=== PATIENT | female | born 1960 | race Caucasian/White ===

== ENCOUNTER 2017-10-08 06:27 | Emergency (ER) | payer OTHER ==
[2017-10-08 06:43] VITALS: RESP 20
--- NOTE | 2017-10-08 07:51 | C.PDOC ---
History Of Present Illness 57 y/o female presents to the ER for evaluation of dizziness which began yesterday. Patient reports that it " feels like vertigo" and she feels like the " room is spinning."Patient had an elevated BP,170/80, in the morning with her baseline being 130/70.She reports that she had similar episodes in the past. She was previously diagnosed with meningioma in 2012 but she was non compliant with her follow-up. She notes that the dizziness is associated with nausea.She denies having headache. Time Seen by Provider: 10/08/17 07:19 Chief Complaint (Nursing): Dizziness/Lightheaded History Per: Patient History/Exam Limitations: no limitations Onset/Duration Of Symptoms: Days Current Symptoms Are (Timing): Still Present Severity: Moderate Past Medical History Reviewed: Historical Data, Nursing Documentation, Vital Signs Vital Signs: Last Vital Signs Temp 98.2 F 10/08/17 14:09 Pulse 57 L 10/08/17 14:09 Resp 20 10/08/17 14:09 BP 103/52 L 10/08/17 14:09 Pulse Ox 99 10/08/17 14:09 - Medical History PMH: HTN Surgical History: No Surg Hx Family History: States: No Known Family Hx - Social History Hx Tobacco Use: No Hx Alcohol Use: No Hx Substance Use: No - Immunization History Hx Tetanus Toxoid Vaccination: No Hx Influenza Vaccination: No Hx Pneumococcal Vaccination: No Review Of Systems Except As Marked, All Systems Reviewed And Found Negative. Gastrointestinal: Positive for: Nausea Neurological: Positive for: Dizziness. Negative for: Headache Physical Exam - Physical Exam Appears: Non-toxic, No Acute Distress Skin: Normal Color, Warm Head: Atraumatic, Normacephalic Eye(s): bilateral: Normal Inspection Neurological/Psych: Other (inducible vertigo with positon change, otherwise no neurovascular deficits) ED Course And Treatment - Laboratory Results Result Diagrams: 10/08/17 08:02 10/08/17 08:02 ECG: Interpreted By Me ECG Rhythm: Sinus Rhythm ECG Interpretation: No Acute Changes Interpretation Of ECG: TWI UNCH FROM PRIOR O2 Sat by Pulse Oximetry: 100 (RA) Pulse Ox Interpretation: Normal - CT Scan/US Head CT Other Rad Studies (CT/US): Read By Radiologist CT/US Interpretation: PROCEDURE: CT HEAD WITHOUT CONTRAST. HISTORY: Dizziness , history of meningioma please compared to 2013. COMPARISON: 04/11/2013. TECHNIQUE: Axial computed tomography images were obtained through the head/ brain without intravenous contrast. Radiation dose: Total exam DLP = 847.23 mGy-cm. This CT exam was performed using one or more of the following dose reduction techniques: Automated exposure control, adjustment of the mA and/or kV according to patient size, and/or use of iterative reconstruction technique. FINDINGS: HEMORRHAGE: No intracranial hemorrhage. BRAIN: Rodriguez-white matter differentiation is preserved. There is a 13 x 12 mm peripherally calcified right frontal parafalcine meningioma not significantly changed since the prior examination There is no mass effect or abnormal extra-axial fluid collection. There are coarse atherosclerotic calcifications in the cavernous carotid arteries. VENTRICLES: The ventricles are normal in size, shape and configuration. There is prominence of bifrontal extra-axial CSF spaces. CALVARIUM: Unremarkable. PARANASAL SINUSES: Unremarkable as visualized. No significant inflammatory changes. MASTOID AIR CELLS: Unremarkable as visualized. No inflammatory changes. OTHER FINDINGS: None. IMPRESSION: No acute intra and cranial abnormality. Little interval change known 13 x 12 mm peripherally calcified right frontal parafalcine meningioma. Progress - Re-Evaluation Re-evaluation Note: 10/08/17 08:59 NAUSEA RESOLVED, STATES IS READY TO TAKE PO MEDS. CT REPORT PENDING 10/08/17 13:51 AMBUL WO DIFF, PS FEELS BETTER. CO R NECK/UPPER BACK PAIN WORSE W MOVEMENT. NO SWELL, NONTEND AROM WO DIFF. REPRODUC PAIN W R LAT ROTATION. - Data Reviewed Data Reviewed: Lab, Diagnostic imaging, EKG, Old records Medical Decision Making Medical Decision Making: Plan: --Antivert PO --Zofran IV --Labs --ECG --CT-Head Disposition Counseled Patient/Family Regarding: Studies Performed, Diagnosis, Need For Followup, Rx Given - Disposition Referrals: YOUR,PMD [Other] Disposition: HOME/ ROUTINE Disposition Time: 13:54 Condition: IMPROVED Prescriptions: Meclizine [Antivert] 50 mg PO TID PRN #21 tab PRN Reason: Dizziness Metoclopramide [Reglan] 1 tab PO TID PRN #25 tab PRN Reason: Nausea/Vomiting Instructions: Vertigo (a Type of Dizziness), Torticollis, Adult Forms: [employer] (French) - Clinical Impression Clinical Impression: Vertigo, Torticollis, acute - Scribe Statement The provider has reviewed the documentation as recorded by the Scribe Chrissy Richey Provider Attestation: All medical record entries made by the Scribe were at my direction and personally dictated by me. I have reviewed the chart and agree that the record accurately reflects my personal performance of the history, physical exam, medical decision making, and the department course for this patient. I have also personally directed, reviewed, and agree with the discharge instructions and disposition.
[2017-10-08 08:17] LABS: BASO % 0.3 % (0.0-2.0); EOS % 0.6 % (0.0-4.0); HEMOGLOBIN 13.9 g/dL (11.0-16.0); LYMPH # 0.9 K/uL (1.0-4.3); LYMPH % 12.5 % (20.0-40.0); MEAN CORPUSCULAR HEMOGLOBIN 30.3 pg (27.0-31.0); MEAN CORPUSCULAR HGB CONC 33.7 g/dL (33.0-37.0); MEAN PLATELET VOLUME 8.4 fL (7.2-11.7); MONO # 0.4 K/uL (0.0-0.8); MONO % 5.4 % (0.0-10.0); NEUT # 5.8 K/uL (1.8-7.0); NEUT % 81.2 % (50.0-75.0); RBC 4.6 Mil/uL (3.80-5.20); WHITE BLOOD COUNT 7.1 K/uL (4.8-10.8)
[2017-10-08 08:29] LABS: BLOOD UREA NITROGEN 12 mg/dL (7-17); CALCIUM 8.9 mg/dl (8.6-10.4); GFR AFRICAN-AMERICAN > 60; GFR NON-AFRICAN AMERICAN > 60
--- NOTE | 2017-10-08 09:05 | CT ---
PROCEDURE: CT HEAD WITHOUT CONTRAST. HISTORY: Dizziness, history of meningioma please compared to 2013 COMPARISON: 04/11/2013. TECHNIQUE: Axial computed tomography images were obtained through the head/brain without intravenous contrast. Radiation dose: Total exam DLP = 847.23 mGy-cm. This CT exam was performed using one or more of the following dose reduction techniques: Automated exposure control, adjustment of the mA and/or kV according to patient size, and/or use of iterative reconstruction technique. FINDINGS: HEMORRHAGE: No intracranial hemorrhage. BRAIN: Rodriguez-white matter differentiation is preserved. There is a 13 x 12 mm peripherally calcified right frontal parafalcine meningioma not significantly changed since the prior examination There is no mass effect or abnormal extra-axial fluid collection. There are coarse atherosclerotic calcifications in the cavernous carotid arteries. VENTRICLES: The ventricles are normal in size, shape and configuration. There is prominence of bifrontal extra-axial CSF spaces. CALVARIUM: Unremarkable. PARANASAL SINUSES: Unremarkable as visualized. No significant inflammatory changes. MASTOID AIR CELLS: Unremarkable as visualized. No inflammatory changes. OTHER FINDINGS: None. IMPRESSION: No acute intra and cranial abnormality. Little interval change known 13 x 12 mm peripherally calcified right frontal parafalcine meningioma.
[2017-10-08 14:10] VITALS: BP 103/52; PULSE 57; TEMP 98.2
[2017-10-08 18:22] VITALS: O2SAT 100
--- NOTE | 2017-10-11 22:59 | CARD ---
APPROVED REPORT EKG Measurement Heart [id number] <Conclusion> Normal sinus rhythm Nonspecific ST and T wave abnormality Abnormal ECG
== END 2017-10-08 14:26 | disposition home or self-care (01) ==
LOC: C.ER 06:27
DX: R42 Dizziness and giddiness (principal); M43.6 Torticollis
CPT/HCPCS: 70450; 80048; 85025; 96372; 96374; 96375; 99285; J1885; J2405; J2550